=== PATIENT | male | born 1950 | race African-American/Black ===

== ENCOUNTER 2016-08-09 09:20 | Emergency (ER) | payer MEDICARE, MEDICAID ==
--- NOTE | 2016-08-09 13:15 | ERRECORD ---
[facility] EMERGENCY RECORD HPI SHOULDER (09:39 ALMO) CHIEF COMPLAINT: Patient presents for evaluation of pain. HISTORIAN: History provided by patient. MECHANISM OF INJURY: Unknown mechanism. LOCATION: Symptoms are localized, most severe to the around the scapular spine, on the left. QUALITY: Pain is sharp in nature. SEVERITY: Maximum severity of symptoms mild, Currently symptoms are moderate. TIME COURSE: Gradual onset of symptoms, 1, months ago, Symptoms are worsening. ASSOCIATED WITH: No associated symptoms. EXACERBATED BY: Patient's condition exacerbated by movement. RELIEVED BY: Patient's condition relieved by over the counter medication, naproxen. ROS (09:54 ALMO) CONSTITUTIONAL: Historian denies fatigue, denies fever. CARDIOVASCULAR: Historian denies chest pain, denies diaphoresis, denies dyspnea on exertion, denies orthopnea, denies syncope, denies palpitations. RESPIRATORY: Historian denies cough, denies shortness of breath. GI: Historian denies abdominal pain. NOTES: All systems reviewed, negative except as described above. PAST MEDICAL HISTORY (TueAug 09, 2016 09:35 JPER) MEDICAL HISTORY: No past medical history, No past medical history, No past medical history of diabetes, No past medical history of pulmonary disease. MALE SURGICAL HISTORY: NOTED, PERFORATED BOWEL. SOCIAL HISTORY: Social History includes VERIFIED 08-09-16, Patient currently uses tobacco, Patient smokes cigarettes, Patient smokes 1 pack per day, Patient denies alcohol use, Patient is a former drug user, abused cocaine. KNOWN ALLERGIES No Known Drug Allergies CURRENT MEDICATIONS (09:36 JPER) Naprosyn: TABLET : Strength - 500 mg : ORAL Patient Dose: 220 mg Oral 2 times a day. VITAL SIGNS VITAL SIGNS: BP: 190/90, Pulse: 56, Resp: 18, Temp: 97.8 (Oral), O2 sat: 98 on Room Air, Time: 08/09/2016 09:31. (09:31 JPER) BP: 185/88, Pulse: 58, Resp: 20, O2 sat: 98 on RA, Time: 08/09/2016 10:15. (10:15 JPER) PHYSICAL EXAM (09:55 ALMO) CONSTITUTIONAL: Vital Signs Reviewed, Blood pressure, &a-1R&a+25V*p+0X*v5123A*c152B*c15G*c2P*p-0X&a-25V&a+1R Name: Denise Thakur : M66 MedRec: [id number] AcctNum: [id number] Prepared: TueAug 09, 2016 10:25 by Interface Page 1 of 2 pMD [facility] EMERGENCY RECORD hypertensive. HEAD: normocephalic. EYES: Pupils equally round and reactive to light. NECK: Neck exam included findings of, decreased range of motion, mildly in all directions, Thyroid, no carotid bruits, no meningeal signs, no cervical adenopathy, no tenderness. RESPIRATORY CHEST: Respiratory exam included findings of no respiratory distress, Breath sounds clear. CARDIOVASCULAR: Cardiovascular exam included findings of heart rate regular rate and rhythm, Heart sounds normal. ABDOMEN MALE: Abdominal exam included findings of abdomen nontender. BACK: Back exam included findings of normal inspection, range of motion normal. UPPER EXTREMITY: Left shoulder exam included findings of, no deformity, no swelling, no erythema, no warmth, no muscle atrophy, tenderness, active range of motion normal, passive range of motion normal, distal pulses normal, capillary refill less than 2 seconds, distal motor intact, distal sensory intact. NEURO: Neuro exam findings include patient oriented to person, place and time, no focal motor deficits, no focal sensory deficits. SKIN: Skin exam included findings of skin warm, dry, and normal in color. LYMPHATIC: Lymphatic exam normal. PSYCHIATRIC: Psychiatric exam included findings of patient oriented to person place and time. PROBLEM LIST No recorded problems DIAGNOSIS (09:59 ALMO) FINAL: PRIMARY: trapezius strain. PRESCRIPTION No recorded prescriptions DISPOSITION PATIENT: Disposition Type: Discharge, Disposition: *Discharge Home. (09:59 ALMO) Patient left the department. (10:20 DAYLIN) Rodriguez: ANGEL=MD Vimal, Juan Pablo MAO=JAELYN Nguyen, Alyssa &a-1R&a+25V*p+0X*[id number]*c152B*c15G*c2P*p-0X&a-25V&a+1R Name: Denise Thakur : M66 MedRec: [id number] AcctNum: [id number] Prepared: TueAug 09, 2016 10:25 by Interface Page 2 of 2 pMD MTDD
--- NOTE | 2016-08-09 13:16 | PICIS ---
[facility] EMERGENCY RECORD TRIAGE (TueAug 09, 2016 09:35 JPER) PATIENT: NAME: Denise Thakur, AGE: 66, GENDER: male, : Tue1950, TIME OF GREET: TueAug 09, 2016 09:20, PREFERRED LANGUAGE: Armenian, RACE: Black or , ETHNICITY: Not or , ECODE BILLING MAP: [facility], SSN: [id number], Zip Code: [address], KG WEIGHT: 62.60, PHONE: , , , PERSON ID: [id number], PCP: NO PCP. (TueAug 09, 2016 09:35 JPER) COMPLAINT: LT SHOULDER PAIN. (TueAug 09, 2016 09:35 JPER) ADMISSION: URGENCY: 4 Non Urgent, ADMISSION SOURCE: Home, TRANSPORT: Walk-in, BED: ED -04. (TueAug 09, 2016 09:35 JPER) ASSESSMENT: Assessment: LEFT SHOULDER PAIN X 1 MONTH. (TueAug 09, 2016 09:35 JPER) PAIN: Patient complains of pain described as, aching, Pain is constant, No aggravating factors, No relieving factors. (TueAug 09, 2016 09:35 JPER) IMMUNIZATIONS: Tetanus immunization up to date. (TueAug 09, 2016 09:35 JPER) SIRS SCORING: Heart Rate 55-109 (0), Temp range 96.8-101.1 (0), respiratory rate 12-24 (0), Mental Status altered: no (0). (TueAug 09, 2016 09:35 JPER) TRIAGE SCREENING: Patient denies suicidal ideation, Patient denies presence of domestic violence. (TueAug 09, 2016 09:35 JPER) PROVIDERS: TRIAGE NURSE: Alyssa Nguyen RN. (TueAug 09, 2016 09:35 JPER) VITAL SIGNS: BP 190/90, Pulse 56, Resp 18, Temp 97.8, (Oral), O2 Sat 98, on Room Air, Time 08/09/2016 09:31. (09:31 JPER) KNOWN ALLERGIES No Known Drug Allergies CURRENT MEDICATIONS (09:36 JPER) Naprosyn: TABLET : Strength - 500 mg : ORAL Patient Dose: 220 mg Oral 2 times a day. VITAL SIGNS VITAL SIGNS: BP: 190/90, Pulse: 56, Resp: 18, Temp: 97.8 (Oral), O2 sat: 98 on Room Air, Time: 08/09/2016 09:31. (09:31 JPER) BP: 185/88, Pulse: 58, Resp: 20, O2 sat: 98 on RA, Time: 08/09/2016 10:15. (10:15 JPER) NURSING ASSESSMENT: EXTREMITY UPPER (09:47 JPER) CONSTITUTIONAL: Patient arrives ambulatory, Gait steady, History obtained from patient, Patient appears comfortable, Patient cooperative, Patient alert, Oriented to person, place and time, Skin warm, Skin dry, Skin normal in color, Mucous membranes pink, Mucous membranes moist, Patient is well-groomed, Patient complains of LEFT POST SHOULDER PAIN. PAIN: aching pain, to the left shoulder, on a scale 0-10 patient rates pain as 8, WORSE AT &a-1R&a+25V*p+0X*q8724Y*c152B*c15G*c2P*p-0X&a-25V&a+1R Name: Denise Thakur : M66 MedRec: [id number] AcctNum: [id number] Prepared: TueAug 09, 2016 10:26 by Interface Page 1 of 4 pMD [facility] EMERGENCY RECORD NIGHT; DENIES INJURY OR KNOWN CAUSE, Pain exacerbated by nothing, Nothing has been tried to alleviate the pain. LEFT UPPER EXTREMITY: Left upper extremity assessment findings include capillary refill less than 2 seconds, Skin color normal to hand, Skin temperature to hand warm, Distal sensation intact, Muscle tone normal, radial pulse is +3. RIGHT UPPER EXTREMITY: Right upper extremity assessment findings include capillary refill less than 2 seconds, Skin color normal to hand, Skin temperature to hand warm, Distal sensation intact, Muscle tone normal, radial pulse is +3. NOTES: Emotional support needed and given, Patient tolerated procedure well. SAFETY: Side rails up, Cart/Stretcher in lowest position, Family at bedside, Call light within reach, Hospital ID band on. NURSING PROCEDURE: DISCHARGE NOTE (10:15 JPER) DISCHARGE: Patient discharged to home, ambulating without assistance, driving self, unaccompanied, Summary of Care printed/ provided, Patient requested and was provided an electronic copy of Discharge Instructions, Transition record given to patient, Discharge instructions given to patient, Prescriptions given and instructions on side effects given, Above person(s) verbalized understanding of discharge instructions and follow-up care, Patient treated and evaluated by physician. BELONGINGS: Belongings remain with patient, Valuables remain with patient. NOTES: Emotional support needed and given, Patient tolerated procedure well. VITAL SIGNS: BP: 185, / 88, Pulse: 58, Resp: 20, O2 sat: 98, on: RA. HPI SHOULDER (09:39 ALMO) CHIEF COMPLAINT: Patient presents for evaluation of pain. HISTORIAN: History provided by patient. MECHANISM OF INJURY: Unknown mechanism. LOCATION: Symptoms are localized, most severe to the around the scapular spine, on the left. QUALITY: Pain is sharp in nature. SEVERITY: Maximum severity of symptoms mild, Currently symptoms are moderate. TIME COURSE: Gradual onset of symptoms, 1, months ago, Symptoms are worsening. ASSOCIATED WITH: No associated symptoms. EXACERBATED BY: Patient's condition exacerbated by movement. RELIEVED BY: Patient's condition relieved by over the counter medication, naproxen. ROS (09:54 ALMO) CONSTITUTIONAL: Historian denies fatigue, denies fever. CARDIOVASCULAR: Historian denies chest pain, denies diaphoresis, denies dyspnea on exertion, denies orthopnea, denies syncope, denies palpitations. &a-1R&a+25V*p+0X*r3989P*c152B*c15G*c2P*p-0X&a-25V&a+1R Name: BlazeDenise : M66 MedRec: [id number] AcctNum: [id number] Prepared: TueAug 09, 2016 10:26 by Interface Page 2 of 4 pMD [facility] EMERGENCY RECORD RESPIRATORY: Historian denies cough, denies shortness of breath. GI: Historian denies abdominal pain. NOTES: All systems reviewed, negative except as described above. PAST MEDICAL HISTORY (TueAug 09, 2016 09:35 JPER) MEDICAL HISTORY: No past medical history, No past medical history, No past medical history of diabetes, No past medical history of pulmonary disease. MALE SURGICAL HISTORY: NOTED, PERFORATED BOWEL. SOCIAL HISTORY: Social History includes VERIFIED 08-09-16, Patient currently uses tobacco, Patient smokes cigarettes, Patient smokes 1 pack per day, Patient denies alcohol use, Patient is a former drug user, abused cocaine. PHYSICAL EXAM (09:55 ALMO) CONSTITUTIONAL: Vital Signs Reviewed, Blood pressure, hypertensive. HEAD: normocephalic. EYES: Pupils equally round and reactive to light. NECK: Neck exam included findings of, decreased range of motion, mildly in all directions, Thyroid, no carotid bruits, no meningeal signs, no cervical adenopathy, no tenderness. RESPIRATORY CHEST: Respiratory exam included findings of no respiratory distress, Breath sounds clear. CARDIOVASCULAR: Cardiovascular exam included findings of heart rate regular rate and rhythm, Heart sounds normal. ABDOMEN MALE: Abdominal exam included findings of abdomen nontender. BACK: Back exam included findings of normal inspection, range of motion normal. UPPER EXTREMITY: Left shoulder exam included findings of, no deformity, no swelling, no erythema, no warmth, no muscle atrophy, tenderness, active range of motion normal, passive range of motion normal, distal pulses normal, capillary refill less than 2 seconds, distal motor intact, distal sensory intact. NEURO: Neuro exam findings include patient oriented to person, place and time, no focal motor deficits, no focal sensory deficits. SKIN: Skin exam included findings of skin warm, dry, and normal in color. LYMPHATIC: Lymphatic exam normal. PSYCHIATRIC: Psychiatric exam included findings of patient oriented to person place and time. EVENTS TRANSFER: Triage to Emergency Main ED -04. (TueAug 09, 2016 09:35 JPER) Removed from Emergency Main ED -04. (10:20 JPER) PROBLEM LIST &a-1R&a+25V*p+0X*[id number]*c152B*c15G*c2P*p-0X&a-25V&a+1R Name: Denise Thakur : M66 MedRec: [id number] AcctNum: [id number] Prepared: TueAug 09, 2016 10:26 by Interface Page 3 of 4 pMD [facility] EMERGENCY RECORD No recorded problems DIAGNOSIS (09:59 ALMO) FINAL: PRIMARY: trapezius strain. DISPOSITION PATIENT: Disposition Type: Discharge, Disposition: *Discharge Home. (09:59 ALMO) Patient left the department. (10:20 JPER) INSTRUCTION (10:02 ALMO) DISCHARGE: THORACIC STRAIN. FOLLOWUP: Follow up with Primary Care Physician in 2-3 days. SPECIAL: No lifting or strenuous activity for 10 days. Follow-up with your primary physician as needed. PRESCRIPTION No recorded prescriptions IMAGING RX: Image captured from scanner. (10:15 JPER) *DISCHARGE INSTRUCTIONS RECEIPT: Image captured from scanner. (10:19 JPER) *SUPPLY CHARGE SHEET: Image captured from scanner. (10:19 JPER) ADMIN (10:20 JPER) DIGITAL SIGNATURE: JAELYN Nguyen, Alyssa. Rodriguez: ANGEL=MD Vimal, Juan Pablo JPER=JAELYN Nguyen, Alyssa &a-1R&a+25V*p+0X*[id number]*c152B*c15G*c2P*p-0X&a-25V&a+1R Name: Denise Thkaur : M66 MedRec: [id number] AcctNum: [id number] Prepared: TueAug 09, 2016 10:26 by Interface Page 4 of 4 pMD MTDD
== END 2016-08-09 10:15 | disposition home or self-care (01) ==
LOC: MADERS 09:20
DX: S46.812A Strain of other muscles, fascia and tendons at shoulder and upper arm level, left arm, initial encounter (principal); E11.9 Type 2 diabetes mellitus without complications; F17.210 Nicotine dependence, cigarettes, uncomplicated; Z79.899 Other long term (current) drug therapy; X58.XXXA Exposure to other specified factors, initial encounter
CPT/HCPCS: 99283

== ENCOUNTER 2019-11-08 20:49 | Emergency (ER) | payer MEDICARE, MEDICAID | END 2019-11-08 21:35 | disposition home or self-care (01) | LOC: MADERS 20:49 | DX: K40.90 Unilateral inguinal hernia, without obstruction or gangrene, not specified as recurrent (principal); I10 Essential (primary) hypertension; F17.210 Nicotine dependence, cigarettes, uncomplicated | CPT/HCPCS: 99283 ==

== ENCOUNTER 2021-01-22 16:55 | Emergency (ER) | payer MEDICARE, MEDICAID ==
[2021-01-22] MEDS ORDERED: Acetaminophen/Codeine 30-300mg Tablet ONE (17:49)
== END 2021-01-22 18:10 | disposition home or self-care (01) ==
LOC: MADERS 16:55
DX: S00.03XA Contusion of scalp, initial encounter (principal); F17.210 Nicotine dependence, cigarettes, uncomplicated; I10 Essential (primary) hypertension; W19.XXXA Unspecified fall, initial encounter
CPT/HCPCS: 70450; 72125

== ENCOUNTER 2021-04-17 12:43 | Emergency (ER) | payer MEDICARE, MEDICAID ==
[~2021-04-17 12:43] MED LIST: Iopamidol 370 76% 100 ML VIAL ONE
[2021-04-17 13:58] LABS: Bilirubin Small (Negative); Blood, Urine Negative (Negative); Clarity Slightly Cloudy (Clear); Glucose, Urine (Dipstick) Negative (Negative); Ketone, Urine Negative (Negative); Leukocyte Trace (Negative); Nitrite Negative (Negative); Protein, Urine (Dipstick) Negative (Neg-Trace); pH, Urine 5.5 (5.0-9.0)
[2021-04-17 14:02] LABS: Bacteria/HPF 3+ HPF (None Seen); RBC/HPF 0-3 HPF (0-3); Squamous Epithelial 0-3 HPF (0-3); WBC/HPF 0-3 HPF (0-3)
[2021-04-17 15:07] LABS: #Basophils 0.1 thou/uL (0.0-0.2); #Eosinphils 0.1 thou/uL (0.0-0.7); #Lymphocytes 0.9 thou/uL (1.20-3.40); #Monocytes 0.8 thou/uL (0.11-0.59); #Neutrophils 7.7 thou/uL (1.40-6.50); %Basophils 1.3 % (0.0-1.0); %Eosinophils 1.2 % (0.0-10.0); %Lymphocytes 9.3 % (21.0-51.0); %Monocytes 7.9 % (0.0-10.0); %Neutrophils 80.3 % (42.0-75.0); Hemoglobin 16.1 g/dL (14.0-18.0); Mean Corpuscular HGB CONC 30.7 g/dL (32.0-36.0); Mean Corpuscular Hemoglobin 30.4 pg (27.0-31.0); Mean Corpuscular Volume 98.9 fL (78.0-98.0); Mean Platelet Volume 8.6 fL (7.4-10.4); Platelet Count 238 thou/uL (130-400); RBC Distribution Width 12.5 % (11.5-14.5); Red Blood Cell (RBC) Count 5.31 mill/uL (4.70-6.10); White Blood Cell (WBC) Count 9.6 thou/uL (4.8-10.8)
[2021-04-17 15:21] LABS: ALT (SGPT) Less than 7 U/L (8-55); AST (SGOT) 14 U/L (5-34); Alkaline Phosphatase 75 U/L (40-110); Anion Gap 15 mmol/L (10-20); BUN (Urea Nitrogen) 16 mg/dL (8.4-25.7); Bilirubin, Total 0.6 mg/dL (0.2-1.2); Calc. Creatinine Clearance 0 mL/min (70-130); Calcium 10.1 mg/dL (7.8-10.44); Carbon Dioxide 28 mmol/L (23-31); Chloride 99 mmol/L (98-107); Glucose 102 mg/dL (80-115); Potassium 4.3 mmol/L (3.5-5.1); Sodium 138 mmol/L (136-145)
== END 2021-04-17 16:40 | disposition home or self-care (01) ==
LOC: MADERS 12:43
DX: N45.1 Epididymitis (principal); I10 Essential (primary) hypertension; F17.210 Nicotine dependence, cigarettes, uncomplicated
CPT/HCPCS: 36415; 74177; 80053; 81003; 81015; 83605; 85025; 87086; Q9967

== ENCOUNTER 2022-01-26 15:48 | Emergency (ER) | payer MEDICARE, MEDICAID ==
[2022-01-26] MEDS ORDERED: Sodium Chloride 0.9% 1,000 ML ONE ×2 (16:54→18:05)
[2022-01-26 17:20] LABS: #Basophils 0.2 thou/uL (0.0-0.2); #Lymphocytes 1.5 thou/uL (1.20-3.40); #Monocytes 1.1 thou/uL (0.11-0.59); #Neutrophils 7.5 thou/uL (1.40-6.50); %Basophils 1.5 % (0.0-1.0); %Eosinophils 0.3 % (0.0-10.0); %Lymphocytes 14.6 % (21.0-51.0); %Monocytes 10.6 % (0.0-10.0); %Neutrophils 73.1 % (42.0-75.0); Hemoglobin 13.9 g/dL (14.0-18.0); Mean Corpuscular HGB CONC 32.8 g/dL (32.0-36.0); Mean Corpuscular Volume 85.5 fL (78.0-98.0); Mean Platelet Volume 9.4 fL (7.4-10.4); Platelet Count 266 thou/uL (130-400); RBC Distribution Width 12.4 % (11.5-14.5); Red Blood Cell (RBC) Count 4.95 mill/uL (4.70-6.10); White Blood Cell (WBC) Count 10.3 thou/uL (4.8-10.8)
[2022-01-26 17:30] LABS: ALT (SGPT) 8 U/L (8-55); AST (SGOT) 17 U/L (5-34); Alkaline Phosphatase 219 U/L (40-110); Anion Gap 20 mmol/L (10-20); BUN (Urea Nitrogen) 65 mg/dL (8.4-25.7); Bilirubin, Total 0.3 mg/dL (0.2-1.2); Calc. Creatinine Clearance 0 mL/min (70-130); Calcium 9.7 mg/dL (7.8-10.44); Carbon Dioxide 25 mmol/L (23-31); Chloride 93 mmol/L (98-107); Estimated GFR 37; Globulin 5.1 g/dL (2.4-3.5); Glucose 138 mg/dL (83-110); Potassium 3.7 mmol/L (3.5-5.1); Protein, Total 9.1 g/dL (5.8-8.1); Sodium 134 mmol/L (136-145)
== END 2022-01-26 19:03 | disposition home or self-care (01) ==
LOC: MADERS 15:48
DX: U07.1 COVID-19 (principal); E86.0 Dehydration; N17.9 Acute kidney failure, unspecified; I10 Essential (primary) hypertension; F17.210 Nicotine dependence, cigarettes, uncomplicated
CPT/HCPCS: 71045; 80053; 85025; U0003; U0005; J7050